=== PATIENT | male | born 1930 | race Caucasian/White ===

== ENCOUNTER → 2017-01-16 | Outpatient (CLI) | payer MEDICARE, OTHER ==
[~2017-01-16] MED LIST: AMOXICILLIN500 MG PO; ASPIRIN EC81 MG PO; CETAPHIL LOTION8 OZ TOP; CYMBALTA30 MG PO; ELIQUIS2.5 MG PO; FISH OIL 1,0001 EACH PO; FLAX OIL1000 MG PO; LASIX40 MG PO; LEVAQUIN500 MG PO; LIPITOR40 MG PO; NEXIUM40 MG PO; NITROSTAT 0.40.4 MG SL; NITROSTAT0.4 MG SL; NORCO 5-325 TA1 EACH PO; NORVASC5 MG PO; PRED FORTE 1%5 ML OPHTH; SYSTANE 0.3-0.440 ML OPHTH; TAB-A-VITE1 EACH PO; TOPROL XL25 MG PO; TRESIBA FL100 UNIT/1 SUB-Q; TYLENOL EXTRA500 MG PO; VITAMIN D-40400 UNIT PO; ZOLOFT25 MG PO
== END | disposition disaster alternative care site (69) ==
LOC: LGSMG 17:01
DX: Z00.00 Encounter for general adult medical examination without abnormal findings (principal); D64.9 Anemia, unspecified; E11.22 Type 2 diabetes mellitus with diabetic chronic kidney disease; E11.29 Type 2 diabetes mellitus with other diabetic kidney complication; E11.65 Type 2 diabetes mellitus with hyperglycemia; R60.9 Edema, unspecified; E78.5 Hyperlipidemia, unspecified; I10 Essential (primary) hypertension; E87.1 Hypo-osmolality and hyponatremia; R80.9 Proteinuria, unspecified; Z92.29 Personal history of other drug therapy; Z79.899 Other long term (current) drug therapy

== ENCOUNTER → 2017-02-27 | Outpatient (CLI) | payer MEDICARE, OTHER | LOC: LGSMG 15:29 | DX: I25.10 Atherosclerotic heart disease of native coronary artery without angina pectoris (principal); N18.4 Chronic kidney disease, stage 4 (severe); E11.22 Type 2 diabetes mellitus with diabetic chronic kidney disease; Z79.899 Other long term (current) drug therapy; R60.9 Edema, unspecified; Z00.00 Encounter for general adult medical examination without abnormal findings; I10 Essential (primary) hypertension; E87.1 Hypo-osmolality and hyponatremia; R80.9 Proteinuria, unspecified ==

== ENCOUNTER → 2017-03-08 | Day surgery (SDC) | payer MEDICARE, OTHER ==
[~2017-03-08] VITALS: Ht 170.2 cm; Wt 74.5 kg
--- NOTE | ~2017-03-08 | OR ---
PATIENT'S NAME: PELON FARRAR [facility] AGE: 86 Y [address] ROOM: [place] [address] [place] [facility] [place] DATE: 03/08/2017 OR/Procedure Report DISCHARGE DATE: FAMILY PHYSICIAN: Stan Slater MD ATTENDING PHYSICIAN: DOMI ROLLE SURGEON: Domi Rolle MD MORTGAGE LOAN ORIGINATOR: DATE OF PROCEDURE: 03/08/2017 PREOPERATIVE DIAGNOSIS: End-stage renal disease. POSTOPERATIVE DIAGNOSIS: End-stage renal disease. PROCEDURE: Left arm brachiocephalic fistula. WIRE STITCHER OPERATOR: OR staff. ANESTHESIA: General. ESTIMATED FLUID LOSS: 10 mL. OPERATIVE FINDINGS: Good thrill and bruit. Strong radial and ulnar signals at the end of the case. DESCRIPTION OF PROCEDURE: The patient was brought to the operating room, placed supine on the table, prepped and draped in a sterile manner. Preoperative time-out was performed. The patient received preoperative antibiotics. We made a standard incision 2 cm proximal to the antecubital fossa, dissected down the fascia, incised the fascia in a longitudinal manner, dissected out the brachial artery. We then dissected the cephalic vein in a similar fashion, placed a large clip and transected it. We then gave 5000 units of heparin. We then did a standard 6-0 Prolene anastomosis from the vein to the artery. We removed the clamps. There was excellent flow into the fistula. We then reversed the heparin with use of protamine. Thrombin was used locally. Wound deep layers were closed with 2-0 and 3-0 Vicryl. The skin was closed with running 4-0 Monocryl. The patient tolerated the procedure well, transferred to recovery room and then home later that day. DOMI ROLLE MD FKM/modl PATIENT'S NAME: PELON FARRAR [facility] AGE: 86 Y [address] ROOM: [place] [address] LOCATION: [facility] [place] DATE: 03/08/2017 OR/Procedure Report DISCHARGE DATE: FAMILY PHYSICIAN: Stan Slater MD ATTENDING PHYSICIAN: DOMI ROLLE /[id number] d: 03/08/17 1946 t: 03/09/17 0929, OPERATIVE SUMMARY
[2017-03-08 09:33] LABS: BASOPHIL # 0.1 K/uL (0.0-0.2); EOSINOPHIL # 0.4 K/uL (0.0-0.5); EOSINOPHIL % 4.8 %; HEMOGLOBIN 11.7 g/dL (11.0-16.0); IMMATURE GRANULOCYTE % 0.4 %; LYMPHOCYTE # 2.2 K/uL (0.8-4.0); LYMPHOCYTE % 23.5 %; MCH 33.1 pg (27.0-34.0); MCHC 33.4 gm/dL (32.0-36.5); MCV 99.2 fl (83.0-98.0); MONOCYTE # 1.3 K/uL (0.0-1.0); MONOCYTE % 13.6 %; MPV 9.4 fl (9.4-12.4); NEUTROPHIL # (ANC) 5.2 K/uL (1.4-9.0); NEUTROPHIL % 56.7 %; NRBC % 0 /100WBC (0-0.00); PLATELET COUNT 194 K/uL (150-450); RBC 3.53 M/uL (3.50-5.50); RDW-CV 12.5 % (11.9-14.6); WBC 9.2 K/uL (4.0-11.0)
[2017-03-08 09:41] LABS: INR - (THERAPEUTIC) 1.01 (0.92-1.07); PROTIME 10.6 SECONDS (9.8-11.4)
[2017-03-08 09:50] LABS: ALBUMIN 3.3 gm/dL (3.5-5.0); ANION GAP 13.6 (10.0-19.0); CALCIUM 8.6 mg/dL (8.5-10.5); CREATININE 3.9 mg/dL (0.6-1.3); POTASSIUM 4.6 mMol/L (3.7-5.1); TOTAL BILIRUBIN 0.5 mg/dL (0.0-1.5); TOTAL PROTEIN 7.9 g/dL (6.0-8.4)
== END | disposition disaster alternative care site (69) ==
LOC: GPOC 03-07 10:00 → GSDC 07:00
PROVIDERS: Surgery Vascular Surgery
PROC: 03180ZF Bypass Left Brachial Artery to Lower Arm Vein, Open Approach (ICD-10-PCS; principal; 2017-03-08)
DX: I12.0 Hypertensive chronic kidney disease with stage 5 chronic kidney disease or end stage renal disease (principal); E11.22 Type 2 diabetes mellitus with diabetic chronic kidney disease; N18.6 End stage renal disease; E78.5 Hyperlipidemia, unspecified; I25.10 Atherosclerotic heart disease of native coronary artery without angina pectoris; M48.06 Spinal stenosis, lumbar region; Z79.899 Other long term (current) drug therapy; Z98.890 Other specified postprocedural states
CPT/HCPCS: J0690; J1644; J2405; J2720; J7030

== ENCOUNTER 2017-03-23 11:36 | Inpatient (IN) | payer MEDICARE, OTHER ==
[~2017-03-23] VITALS: Ht 170.2 cm; Wt 76.8 kg
--- NOTE | ~2017-03-23 | DS ---
PATIENT'S NAME: PELON FARRAR [facility] AGE: 86 Y [address] ROOM: [address] [place] [address] LOCATION: GPCU ADMIT DATE: 03/23/2017 Discharge Summary DISCHARGE DATE: 03/28/2017 FAMILY PHYSICIAN: Stan Slater MD ATTENDING PHYSICIAN: Patricia Deluna PRINCIPAL DIAGNOSES: 1. Sepsis secondary to an infected arteriovenous fistula graft incision site. 2. Chronic kidney disease, stage 5. 3. Paroxysmal atrial fibrillation. 4. Hypertension. 5. Diabetes, type 2. HOSPITAL COURSE: Please refer to the admitting history and physical for a detailed history of initial presentation. This is an 86-year-old male with a history of CKD stage 5, on the verge for starting hemodialysis, and recent AV fistula placement by Dr. Rolle, presents with a left-sided AV fistula incision site swelling, pain, and drainage of pus-like material over the previous several days. After presentation, the patient was noted to have a sepsis picture from this and was started on broad-spectrum antibiotics to control the site. The patient was evaluated by Dr. Rolle during hospitalization as well. Fortunately, the patient's incision site improved with IV antibiotics during hospitalization. Wound cultures did grow Serratia species that was mostly pansensitive. The patient was continued to do with this regard and the plan was to go ahead and finish 5 more days course of antibiotics with Levaquin, renally adjusted going forward, and he is to follow up with Dr. Rolle in 2 weeks as well as his PCP Dr. Slater within 1 week. The patient today is in good spirits and doing well and he is to be discharged home with home health and I have discussed this with him and his family currently. PHYSICAL EXAM: GENERAL: Today, The patient is awake, alert, and oriented x3, in no acute distress. CHEST: Clear to auscultation bilaterally. HEART: S1, S2. Regular rate and rhythm. ABDOMEN: Soft, nontender, and nondistended. MUSCULOSKELETAL: Incision site on left upper extremity dressing in place and appears clean, dry, and intact. MEDICATIONS: Per JAN. DISPOSITION: Home with home health and will follow up with Dr. Slater in [address] Rolle's office in 2 weeks. PATIENT'S NAME: PELON FARRAR [facility] AGE: 86 Y [address] ROOM: [facility] [place], [place] [address] [facility] AD[facility] DATE: 03/23/2017 Discharge Summary DISCHARGE DATE: 03/28/2017 FAMILY PHYSICIAN: Stan Slater MD ATTENDING PHYSICIAN: Patricia Deluna Greater than 30 minutes were spent on discharge planning and facilitating. MD MARA MATHEW/modl /[id number] d: 03/29/17 0212 t: 04/15/17 1524, DISCHARGE SUMMARY
--- NOTE | ~2017-03-23 | HP ---
PATIENT'S NAME: PELON FARRAR [facility] AGE: 86 Y [address] ROOM: [place] [address] LOCATION: GPCU ADMIT DATE: 03/23/2017 History & Physical DISCHARGE DATE: FAMILY PHYSICIAN: Stan Slater MD ATTENDING PHYSICIAN: TEJAL PAULINO DATE OF SERVICE: CHIEF COMPLAINT: Left arm pain. Sepsis secondary to infected incision site for AV fistula two weeks ago. HISTORY OF PRESENT ILLNESS: This is an 86-year-old male with a history of stage V kidney disease, in the [place] for dialysis and subsequently had an AV fistula graft replaced, two weeks ago, comes here with increasing left forearm pain at the incision site with drainage of pus and associated fever, chills for the past few days. The patient reports that he has been feeling generally weak and not really been himself over the course of this. Also reports some subjective fever and chills during the same time as well. However, denies any problems with his appetite and he has been eating, drinking okay although at times he felt nauseous. The patient has been following up with Dr. Rolle from vascular surgeon with regard to the discomfort and pain. He has been having at the fistula graft site. The patient otherwise denies any dizziness, lightheadedness, headache, chest pain, shortness or palpitations. PAST MEDICAL HISTORY: 1. Stage V kidney disease. 2. Type 2 diabetes. 3. Hypertension. FAMILY HISTORY: History of kidney disease including a nephrectomy and his mother. SOCIAL HISTORY: The patient denies any history of alcohol, drugs or smoking history. REVIEW OF SYSTEMS: All systems were reviewed and were negative except as mentioned in the HPI. PHYSICAL EXAMINATION: VITAL SIGNS: Blood pressure 166/70, pulse 76, respiratory rate 16, temperature 97.8, and saturating 98% on room air. GENERAL: The patient is awake, alert, and oriented x3, in no acute distress. HEENT: Moist mucous membranes. No scleral icterus. Conjunctival pallor PATIENT'S NAME: PELON FARRAR [facility] AGE: 86 Y [address] ROOM: [place] [address] LOCATION: GPCU ADMIT DATE: 03/23/2017 History & Physical DISCHARGE DATE: FAMILY PHYSICIAN: Stan Slater MD ATTENDING PHYSICIAN: TEJAL PAULINO noted. SKIN: Erythema surrounding left arm at the AV fistula graft site noted with visible pus draining as well and significant swelling around the area as well. However, here get thrill at the fistula site. CHEST: Clear to auscultation bilaterally. HEART: S1, S2. Regular rate and rhythm. ABDOMEN: Soft. Nondistended. EXTREMITIES: Without edema. NEURO: Grossly nonfocal. MUSCULOSKELETAL: Pain with moving left elbow and significant swelling in the area. LABORATORY DATA: Significant lab values, white blood cell count of 18,000. ASSESSMENT AND PLAN: 1. Sepsis secondary to infected AV fistula at incision sight. Fistula was created about 2 weeks ago and he has been having increasing pain and swelling in the area including pus like drainage as well. We will treat the sepsis with Vanc and Zosyn and await for preliminary cultures to come back and at that time, we will consider narrowing antibiotics. 2. Chronic kidney disease stage 5. The patient follows closely with Dr. Slater. 3. Hypertension. We will continue his home medications as prescribed. 4. Type 2 diabetes. We will continue his home medications and use sliding scale insulin and Accu-Cheks. 5. Chronic anticoagulation with Eliquis. The patient tells me that he has had a history of stroke and that is when he was put on an Eliquis. In any case, at this point, we will hold Eliquis and the event that surgical intervention is necessary at the fistula site. 6. DVT prophylaxis. We will use SCDs. TEJAL PAULINO MD BG/modl /[id number] D: 123 T: 521 HISTORY & PHYSICAL
--- NOTE | ~2017-03-23 | CON ---
PATIENT'S NAME: PELON FARRAR [facility] AGE: 86 Y [address] ROOM: [address] [place], [place] [address] LOCATION: GPCU ADMIT DATE: 03/23/2017 Consultation DISCHARGE DATE: FAMILY PHYSICIAN: Stan Slater MD ATTENDING PHYSICIAN: TEJAL PAULINO DATE OF CONSULTATION: 03/24/2017 REFERRING PHYSICIAN: DOMI ROLLE MD [facility] Nephrology Consultation REASON FOR CONSULTATION: CKD stage 3 to 4 with left upper extremity AV fistula infection. HISTORY OF PRESENT ILLNESS: This is an 86-year-old male patient, who is well known to both Dr. Slater and Dr. Temple, who presents with a history of CKD stage 4 to 5, coronary artery disease, type 2 diabetes on insulin, and hypertension. The patient is status post left upper extremity AV fistula placement by Dr. Rolle. The patient did undergo a left arm brachiocephalic AV fistula creation on 03/08/2017. He did present to the clinic on March 14 with concerns of left arm swelling and redness postoperatively. On 03/23/2017, the patient did note increase in drainage, however, denied any fevers or chills. He denied any odor or purulence. He subsequently was admitted by the hospitalist for IV antibiotic at that time. The patient does have a past medical history of CKD stage 4 to 5 and was recently seen by Dr. Temple in the clinic in preparation for dialysis in the near future. His CKD is likely from diabetes and hypertension over the course of time. He has had a progressive rise in his creatinine since 2013. In September 2014, his creatinine was 2.43. In 2016, his creatinine has been consistently between 3.5 and 3.8. Most recently, his creatinine was up to 4.58. The patient has been doing well as an outpatient and not having any gross uremic features. Therefore, due to the patient's history of CKD stage 4 to 5, requiring antibiotic therapy due to an infected left upper extremity AV fistula, Dr. Renae has been asked to consult on the patient to manage him from Nephrology standpoint. PAST MEDICAL HISTORY: As listed above includin. Diabetes, insulin dependent. 2. Hypertension. 3. CKD stage 5. 4. Anemia of chronic kidney disease. 5. Hyperlipidemia. 6. Proteinuria. 7. Coronary artery disease. 8. Atrial fibrillation. 9. Long-term anticoagulation in the form of Eliquis. 10. Monoclonal gammopathy of undetermined significance.PATIENT'S NAME: PELON FARRAR [facility] AGE: 86 Y [address] ROOM: [id number] [place], [place] [address] [facility] AD[facility] DATE: 03/23/2017 Consultation DISCHARGE DATE: FAMILY PHYSICIAN: Stan Slater MD ATTENDING PHYSICIAN: TEJAL PAULINO ALLERGIES: NONE TO MEDICATION. CURRENT MEDICATIONS: 1. Nexium 40 mg daily. 2. Metoprolol 25 mg once a day. 3. Aspirin 81 mg daily. 4. Eliquis 2.5 mg twice a day. 5. Furosemide 40 mg daily. 6. Amlodipine 5 mg daily. 7. Atorvastatin 40 mg daily. 8. Tylenol as needed. 9. He is also taking vitamin D3. 10. Prednisone eye drops. 11. Fish oil. 12. Multivitamin. PAST SURGICAL HISTORY: Includes: 1. Coronary artery bypass grafting surgery. 2. Cholecystectomy. 3. Prostatectomy. 4. Inguinal hernia repair. FAMILY HISTORY: Significant for lymphoma in his mother. His father had a CVA. Brothers has multiple myeloma. SOCIAL HISTORY: The patient does live at home with his . He does have a history of alcohol use. He denies any illicit drug use or tobacco abuse. REVIEW OF SYSTEMS: GENERAL: Denies any fever, chills, or night sweats. EYES: No double vision or blurred vision. NOSE: No epistaxis or rhinorrhea. MOUTH: No gingival bleeding. THROAT: No sore throat, hoarseness, or cough. RESPIRATORY: Denies wheezing or hemoptysis. CARDIOVASCULAR: Denies chest pain, or palpitations. GASTROINTESTINAL: Does complain of some mild nausea. Denies any vomiting or diarrhea. Denies hematemesis or hematochezia. GENITOURINARY: Denies any frequency, urgency, or hesitancy. MUSCULOSKELETAL: Denies any new arthralgias or myalgias. NEUROLOGICAL: Denies any new balance or gait disturbances. HEMATOLOGICAL: Denies any bruising or bleeding, on Eliquis therapy. PSYCHIATRIC: Denies a history of depression or anxiety.PATIENT'S NAME: PELON FARRAR [facility] AGE: 86 Y [address] ROOM: [address] [place], [place] [address] [facility] DATE: 03/23/2017 Consultation DISCHARGE DATE: FAMILY PHYSICIAN: Stan Slater MD ATTENDING PHYSICIAN: TEJAL PAULINO PHYSICAL EXAMINATION: VITAL SIGNS: Blood pressure is 142/63, pulse 60, respirations 14, and temperature is 98.3, sats 96% on room air. GENERAL: On exam, this is an 86-year-old, white male, in no acute distress. HEENT: Head; normocephalic, atraumatic. Eyes; pupils are equal and react to light and accommodation. EOMs intact. Nose; midline. Mouth; no gingival bleeding. Throat is without lymphadenopathy or JVD. LUNGS: Lung sounds are clear to auscultation anteriorly and posteriorly. The patient is on room air. CARDIOVASCULAR: Regular rate and rhythm with no appreciable murmurs, rubs, or thrills. ABDOMEN: Soft, nontender, and nondistended. Bowel sounds positive. EXTREMITIES: Show no signs of peripheral edema, clubbing, or cyanosis. NEUROLOGIC: Cranial nerves II through XII are grossly intact. LYMPHATICS: No palpable lymph nodes in the cervical or axillary areas. LABORATORY DATA: Hemoglobin 9.1, hematocrit 27.7, WBCs 18.7, and platelets are 211. Sodium 135, potassium 4.4, chloride is 103, CO2 of 21, BUN is 48, creatinine 3.7, and glucose is 276. Blood cultures are currently pending and wound cultures are currently pending. ASSESSMENT AND PLAN: 1. Stage V chronic kidney disease status post left upper extremity AV fistula placement. The patient's baseline creatinine is 3.5. We would recommend at this time avoiding all nephrotoxic agents and avoiding IV Zosyn as well as IV vancomycin for treatment of left upper extremity AV fistula infection. The patient does not appear to be grossly uremic at this time. We will continue to monitor his creatinine as well as his urinary outputs. He will be placed on strict I's and O's as well as daily weights. 2. Hypertension. Blood pressures are stable. Continue current medications. 3. Diabetes mellitus. Sliding scale insulin. 4. Anemia of chronic kidney disease. We will continue to monitor his hemoglobin while he is hospitalized. 5. Hyperlipidemia. Continue statin therapy. This patient has been seen and assessed by Dr. Renae. His care is being conducted in consultation with Dr. Renae as well as me. We will plan further recommendations as they are forthcoming. In the interim, the patient is to avoid all nephrotoxic agents. BHAVNA NOVAK DNP, TECHNICAL SPECIALIST CYTOLOGY [facility] ZANA RENAE MD ENS/modl /[id number] d: 03/27/171 t: 04/04/17 1624, CONSULTATION REPORT
--- NOTE | ~2017-03-23 | ER ---
PATIENT'S NAME: PELON FARRAR [facility] AGE: 86 Y [address] ROOM: [place] [address] LOCATION: GPCU ADMIT DATE: 03/23/2017 ER/Outpatient Report DISCHARGE DATE: FAMILY PHYSICIAN: Stan Slater MD ATTENDING PHYSICIAN: TEJAL PAULINO CHIEF COMPLAINT: Pain, left arm and swelling. HISTORY OF PRESENT ILLNESS: The patient is an 86-year-old male, who approximately 2 weeks ago had a fistula placed in his left arm by Dr. Rolle. The patient then following the procedure had developed some swelling which Dr. Rolle had been following. However, today the arm started having some bloody drainage from the incision site. He has also noticed increased pain, swelling, and redness. The patient had a low-grade fever earlier today. PAST MEDICAL HISTORY: ALLERGIES: NO MEDICINAL ALLERGIES. CURRENT MEDICATIONS: See his copied list which was reviewed. MEDICAL HISTORY: Includes: 1. Insulin-dependent diabetes mellitus. 2. Hypertension. 3. Coronary artery disease. 4. End-stage renal failure. 5. History of GERD. 6. Prostate cancer. PAST SURGICAL HISTORY: Surgeries: 1. He has had appendicitis. 2. Triple bypass graft surgery in 2008. 3. TURP. 4. Cholecystectomy. 5. Prostatectomy. 6. Cataract extraction. 7. Dental implants. SOCIAL HISTORY: PATIENT'S NAME: PELON FARRAR [facility] AGE: 86 Y [address] ROOM: [place] [address] LOCATION: GPCU ADMIT DATE: 03/23/2017 ER/Outpatient Report DISCHARGE DATE: FAMILY PHYSICIAN: Stan Slater MD ATTENDING PHYSICIAN: TEJAL PAULINO He is . Nonsmoker. Denies alcohol use. REVIEW OF SYSTEMS: GENERAL: Fever today, generalized malaise. HEAD AND EENT: No complaints of headache, sore throat. RESPIRATORY: Denies any cough or wheezing. CARDIOVASCULAR: No recent chest pain or palpitations. GASTROINTESTINAL: Had some loose stools about a week ago, none today. No abdominal pain. GENITOURINARY: No flank pain. No dysuria. MUSCULOSKELETAL: Swelling and redness involving his left arm. Drainage from the incision where he had the fistula done. PHYSICAL EXAMINATION: VITAL SIGNS: His blood pressure is 141/66. He has a temperature of 98.6, respiratory rate of 18, pulse 57, and O2 saturations 97%. GENERAL: White male, he is cooperative, alert. HEAD AND EENT: Pupils are equal and reactive to light. He has no scleral icterus. Nose; septum in midline. Mouth; oral membranes are moist. LUNGS: Lung sound is clear. HEART: Tones distant. Regular. ABDOMEN: Soft, nontender. EXTREMITIES: Left arm; his forearm appeared swollen. SKIN: Somewhat warm and red. The incision in the antecubital fossa is closed, but there is some bloody drainage present. LABORATORY DATA: Lab Evaluation: He had lactate of 1.6. His CMS; CO2 was slightly low at 21, his glucose 276, BUN 48, and his creatinine is 3.7. Albumin low at 3.2, his globulin was high at 4.6. CBC: White count 18.7, hemoglobin was 9.1. His ANC was elevated at 14.2. Procalcitonin was 0.15. Venous Doppler study of left arm showed good arterial-venous flow with no evidence of any thrombosis. The fistula appeared to be working normal. Soft-tissue swelling was noted. ASSESSMENT: 1. Cellulitis, left arm with recent fistula placement. 2. End-stage renal failure. 3. Insulin-dependent diabetes mellitus. 4. Hypertension. 5. Coronary artery disease with history of previous triple bypass. 6. History of prostate cancer. 7. History of cerebrovascular accident. PLAN: I talked with Dr. Rolle, the vascular surgeon. His recommendation was PATIENT'S NAME: PELON FARRAR [facility] AGE: 86 Y [address] ROOM: [id number] [place] [id number] LOCATION: GPCU ADMIT DATE: 03/23/2017 ER/Outpatient Report DISCHARGE DATE: FAMILY PHYSICIAN: Stan Slater MD ATTENDING PHYSICIAN: TEJAL PAULINO patient be admitted by the Hospitalist Service for antibiotic therapy. Blood cultures were obtained here in the emergency room as well as wound cultures. Zosyn was started at 3.375 g IV. The patient was given 2 [place] for pain after the Doppler study was done. SEE RUIZ FOR MD TORIBIO THAKKAR/modl /[id number] d: 03/23/172120 t: 04/03/17 0952, OUTPATIENT REPORT
--- NOTE | ~2017-03-23 | ENPV ---
Vascular Upper Extremities Veins Procedure Demographics Patient Name PELON FARRAR Date of Study 03/23/2017 Patient Number [id number] Gender Male Date of 1930 Age 86 Visit Number [id number] Height Weight Number Room Number G6321 BSA BMI Referring Jarod Rosales PA-C Interpreting Aquilino Roberson MD Physician Physician Physician Ordering Jarod Rosales Rn Palliative Physician [employer] Solomon, RT,RVT,RDCS Conclusions Summary No evidence of thrombophlebities is noted in the deep or superficial veins of the imaged upper extremity(ies). Procedure Type of Study: Veins:Upper Extremities Veins, Upper Extremity Left. Appropriate Use Criteria:9 Patient Status:STAT. Study Location:ER. Technical Quality:Adequate visualization. - Preliminary reported to:PA. Jonatan Velocities are measured in cm/s ; Diameters are measured in cm Left UE Vein Measurements 2D and Doppler Measurements + + + + +--------+--------+ !Location !Visualized !Compressibility !Thrombosis !Signal !Reflux ! + + + + +--------+--------+ !IJV !Yes !Yes !None !Phasic !No ! + + + + +--------+--------+ !SCV !Yes !Yes !None !Phasic !No ! + + + + +--------+--------+ !Innominate !Yes !Yes !None !Phasic !No ! + + + + +--------+--------+ !Axillary !Yes !Yes !None !Phasic !No ! + + + + +--------+--------+ !Brachial !Yes !Yes !None !Phasic !No ! + + + + +--------+--------+ !Radial !Yes !Yes !None !Phasic !No ! + + + + +--------+--------+ !Ulnar !Yes !Yes !None !Phasic !No ! + + + + +--------+--------+ !Basilic !Yes !Yes !None !Phasic !No ! + + + + +--------+--------+ !Cephalic !Yes !Yes !None !Phasic !No ! + + + + +--------+--------+ Impressions Left Impression All arteries and veins of left upper extremity appear patent. The fistula appears patent but with varying velocities throughout. Signature dtt: dtd: 03/23/17 1320 Physician Self Mary Lou
[~2017-03-23 11:36] MED LIST changes: -CETAPHIL LOTION8 OZ TOP; -LEVAQUIN500 MG PO; -ZOLOFT25 MG PO
[2017-03-23 12:27] LABS: BASOPHIL # 0.1 K/uL (0.0-0.2); BASOPHIL % 0.5 %; EOSINOPHIL # 0.2 K/uL (0.0-0.5); EOSINOPHIL % 0.8 %; HEMOGLOBIN 9.1 g/dL (11.0-16.0); IMMATURE GRANULOCYTE # 0.1 K/uL (0.0-0.3); IMMATURE GRANULOCYTE % 0.7 %; LYMPHOCYTE # 1.9 K/uL (0.8-4.0); LYMPHOCYTE % 9.9 %; MCH 33.6 pg (27.0-34.0); MCHC 32.9 gm/dL (32.0-36.5); MCV 102.2 fl (83.0-98.0); MONOCYTE # 2.3 K/uL (0.0-1.0); MONOCYTE % 12.2 %; MPV 8.9 fl (9.4-12.4); NEUTROPHIL # (ANC) 14.2 K/uL (1.4-9.0); NEUTROPHIL % 75.9 %; NRBC % 0 /100WBC (0-0.00); PLATELET COUNT 211 K/uL (150-450); RBC 2.71 M/uL (3.50-5.50); RDW-CV 13.2 % (11.9-14.6)
[2017-03-23 12:40] LABS: HEMATOCRIT 27.7 % (33.0-50.0); WBC 18.7 K/uL (4.0-11.0)
[2017-03-23 12:43] LABS: ALBUMIN 3.2 gm/dL (3.5-5.0); ANION GAP 15.4 (10.0-19.0); CALCIUM 8.5 mg/dL (8.5-10.5); CREATININE 3.7 mg/dL (0.6-1.3); POTASSIUM 4.4 mMol/L (3.7-5.1); TOTAL PROTEIN 7.8 g/dL (6.0-8.4)
[2017-03-23 12:45] LABS: TOTAL BILIRUBIN 0.8 mg/dL (0.0-1.5)
[2017-03-23] MEDS ORDERED: CETAPHIL LOTION8 OZ TOP (16:17)
--- NOTE | 2017-03-23 17:22 | NUR ---
PATIENT CAME TO ER WITH CELLULITIS OF LFT ARM. HAD FISTULA PLACED 2 WKS AGO IN LFT ARM FOR POSSIBLE HD. BLOOD CULTURES DONE AND CULTURE OF WOUND DONE. HX OF STROKE NO RESIDUAL. CHRONIC BACK PAIN.
--- NOTE | 2017-03-24 04:16 | NUR ---
Significant Event: Patient is alert/oriented x3. Vital signs are stable. On room air. Khushboo, Dr. Rolle's [employer] SUPERINTENDENT, rounded on patient last evening and ordered to do betadine swabs to fistula incision site and to dress with dry gauze daily and PRN. Also to wrap lower arm all the way up to fistula incision site (but not over the site) with JAE wrap. Fistula incision cleaned with betadine and dressed with dry gauze, site did ooze slightly (serosanguinous drainage). Left lower arm JAE wrapped throughout most of the night but patient complained of discomfort and wanted to have it removed around 0200. Medicated with Tylenol x2, with relief. Left upper arm fistula has good bruit and thrill. Patient on IV vancomycin and Zosyn; Khushboo would like to have nursing staff clarify with hospitalists if patient should be receiving vancomycin due to his poor kidney function. Patient still makes urine. Follow up: Dr. Rolle still needs to see patient. Continue to monitor per plan of care.
[2017-03-24 06:31] LABS: BASOPHIL # 0.1 K/uL (0.0-0.2); BASOPHIL % 0.8 %; EOSINOPHIL # 0.7 K/uL (0.0-0.5); EOSINOPHIL % 5.2 %; HEMATOCRIT 27.9 % (33.0-50.0); HEMOGLOBIN 9.2 g/dL (11.0-16.0); IMMATURE GRANULOCYTE # 0.1 K/uL (0.0-0.3); IMMATURE GRANULOCYTE % 0.7 %; LYMPHOCYTE # 2.3 K/uL (0.8-4.0); LYMPHOCYTE % 17.4 %; MCH 33.1 pg (27.0-34.0); MCV 100.4 fl (83.0-98.0); MONOCYTE % 15.4 %; NEUTROPHIL # (ANC) 7.9 K/uL (1.4-9.0); NEUTROPHIL % 60.5 %; NRBC % 0 /100WBC (0-0.00); PLATELET COUNT 186 K/uL (150-450); RBC 2.78 M/uL (3.50-5.50); RDW-CV 13.1 % (11.9-14.6); WBC 13.1 K/uL (4.0-11.0)
[2017-03-24 06:45] LABS: ALBUMIN 2.8 gm/dL (3.5-5.0); ANION GAP 14.9 (10.0-19.0); CALCIUM 8.5 mg/dL (8.5-10.5); CREATININE 3.5 mg/dL (0.6-1.3); PHOSPHORUS 2.6 mg/dL (2.5-4.9); POTASSIUM 3.9 mMol/L (3.7-5.1)
--- NOTE | 2017-03-24 10:10 | NUR ---
PT SCREENED D/T MST. WT UP FROM FEBRUARY WT. WILL ASSIST NEEDED.
--- NOTE | 2017-03-24 14:50 | NUR ---
Significant Event: A/O. VSS on RA. C/O occasional neck pain. Up with SBA, patient states he feels unsteady at times. Abx changed today, patient remains afebrile. Fistula site continues to ooze serousanguinous fluid, changed x2 this shift. Ever wrap to lower left arm to help with edema. Family at bedside. Code status addressed today - full code. Patient upset that it was brought up so much however patient told nursing staff last night he did not want CPR so MD discussed with patient but decided today full code and does not want it brought up again. Follow up:
[2017-03-25 04:09] LABS: BASOPHIL # 0.1 K/uL (0.0-0.2); BASOPHIL % 0.6 %; EOSINOPHIL # 0.2 K/uL (0.0-0.5); EOSINOPHIL % 1.8 %; HEMATOCRIT 29.8 % (33.0-50.0); HEMOGLOBIN 9.6 g/dL (11.0-16.0); IMMATURE GRANULOCYTE # 0.1 K/uL (0.0-0.3); IMMATURE GRANULOCYTE % 0.9 %; LYMPHOCYTE # 1.5 K/uL (0.8-4.0); LYMPHOCYTE % 11.8 %; MCH 33.3 pg (27.0-34.0); MCHC 32.2 gm/dL (32.0-36.5); MCV 103.5 fl (83.0-98.0); MONOCYTE # 1.7 K/uL (0.0-1.0); MONOCYTE % 13.8 %; MPV 9.4 fl (9.4-12.4); NEUTROPHIL # (ANC) 8.9 K/uL (1.4-9.0); NEUTROPHIL % 71.1 %; NRBC % 0 /100WBC (0-0.00); PLATELET COUNT 201 K/uL (150-450); RBC 2.88 M/uL (3.50-5.50); RDW-CV 13.1 % (11.9-14.6); WBC 12.5 K/uL (4.0-11.0)
[2017-03-25 04:26] LABS: ALBUMIN 2.9 gm/dL (3.5-5.0); ANION GAP 17.6 (10.0-19.0); CALCIUM 8.6 mg/dL (8.5-10.5); CREATININE 3.3 mg/dL (0.6-1.3); POTASSIUM 3.6 mMol/L (3.7-5.1); TOTAL PROTEIN 7.3 g/dL (6.0-8.4)
--- NOTE | 2017-03-25 04:26 | NUR ---
Significant Event: Patient alert and oriented x3. Hard of hearing. SBP 131-162. All other vital signs stable. Complained of slight neck pain. Tylenol given x1 with relief. Dressing to left arm fistula changed. Continues to ooze serousanguinous fluid. JAE wrap to arm applied to decrease edema to arm/hand. Blood sugar 329 at HS. Novalog and Levamir given per orders. Patient up with stand-by assist to bathroom. Calm and cooperative with all cares. Follow up: Will continue to monitor fistula.
[2017-03-25 04:28] LABS: TOTAL BILIRUBIN 0.6 mg/dL (0.0-1.5)
--- NOTE | 2017-03-25 16:39 | NUR ---
Significant Event: Alert and oriented X 3. Room air. SBP 144. 131, and 174. HR 60's and 70's. Afebrile. Fistula to left upper arm, bruit heard and thrill felt. Dressing changed to incision on arm. Ever wrap to lower left arm from elbow to hand. ACHS accuchecks 109, 194, with no correction needed. Up with 1 assist and gait belt. Pleasant and cooperative with cares. Follow up:
--- NOTE | 2017-03-26 04:34 | NUR ---
Significant Event: Patient alert and oriented x3. Hard of hearing. Hearing aids at bedside. SBP 131-156. All other vital signs stable. On RA. Tylenol given x1 for anticipation of pain. Dressing to left arm fistula changed x1. Continues to ooze serousanguious fluid. JAE wrap to left arm and hand remains on. Patient up in room with stand-by assist. Calm and cooperative with all cares. Follow up: Will continue to monitor left fistula.
[2017-03-26 04:44] LABS: BASOPHIL # 0.1 K/uL (0.0-0.2); EOSINOPHIL # 1.3 K/uL (0.0-0.5); EOSINOPHIL % 15.1 %; HEMOGLOBIN 9.2 g/dL (11.0-16.0); IMMATURE GRANULOCYTE # 0.1 K/uL (0.0-0.3); IMMATURE GRANULOCYTE % 0.7 %; LYMPHOCYTE # 1.4 K/uL (0.8-4.0); LYMPHOCYTE % 16.2 %; MCH 33.3 pg (27.0-34.0); MCHC 32.9 gm/dL (32.0-36.5); MCV 101.4 fl (83.0-98.0); MONOCYTE # 1.3 K/uL (0.0-1.0); MONOCYTE % 14.4 %; MPV 9.3 fl (9.4-12.4); NEUTROPHIL # (ANC) 4.7 K/uL (1.4-9.0); NEUTROPHIL % 52.6 %; NRBC % 0 /100WBC (0-0.00); PLATELET COUNT 202 K/uL (150-450); RBC 2.76 M/uL (3.50-5.50); WBC 8.8 K/uL (4.0-11.0)
[2017-03-26 04:59] LABS: ALBUMIN 2.5 gm/dL (3.5-5.0); ANION GAP 13.1 (10.0-19.0); CALCIUM 8.5 mg/dL (8.5-10.5); CREATININE 3.4 mg/dL (0.6-1.3); PHOSPHORUS 2.8 mg/dL (2.5-4.9); POTASSIUM 4.1 mMol/L (3.7-5.1)
--- NOTE | 2017-03-26 12:15 | NUR ---
Introduced self and care management services to patient and at bedside. Too soon to know what antibx needs will be on discharge but pt and hoping he can go home on discharge. Denies needs right now. Will follow.
--- NOTE | 2017-03-26 16:21 | NUR ---
Significant Event: Afebrile. HE 60-70's. SBP 130-140's. ON RA. Up ad tomi in room today. Ambulates hallway with PT. Tylenolx2 for generalized discomfort. Blood sugars 118 & 208. Decreased oozing noted from left arm fistula site. Continue IV antibiotics. Follow up: Monitor dressing to left arm.
[2017-03-27 03:44] LABS: BASOPHIL # 0.1 K/uL (0.0-0.2); BASOPHIL % 1.2 %; EOSINOPHIL # 1.7 K/uL (0.0-0.5); EOSINOPHIL % 19.8 %; HEMATOCRIT 28.1 % (33.0-50.0); HEMOGLOBIN 9.1 g/dL (11.0-16.0); IMMATURE GRANULOCYTE # 0.1 K/uL (0.0-0.3); IMMATURE GRANULOCYTE % 1.2 %; LYMPHOCYTE # 1.8 K/uL (0.8-4.0); LYMPHOCYTE % 20.4 %; MCH 33.2 pg (27.0-34.0); MCHC 32.4 gm/dL (32.0-36.5); MCV 102.6 fl (83.0-98.0); MONOCYTE # 1.3 K/uL (0.0-1.0); MONOCYTE % 15.1 %; MPV 9.4 fl (9.4-12.4); NEUTROPHIL # (ANC) 3.7 K/uL (1.4-9.0); NEUTROPHIL % 42.3 %; NRBC % 0 /100WBC (0-0.00); PLATELET COUNT 211 K/uL (150-450); RBC 2.74 M/uL (3.50-5.50); WBC 8.6 K/uL (4.0-11.0)
[2017-03-27 03:54] LABS: ALBUMIN 2.6 gm/dL (3.5-5.0); ANION GAP 12.9 (10.0-19.0); CALCIUM 8.8 mg/dL (8.5-10.5); CREATININE 3.5 mg/dL (0.6-1.3); PHOSPHORUS 3.2 mg/dL (2.5-4.9); POTASSIUM 3.9 mMol/L (3.7-5.1)
--- NOTE | 2017-03-27 04:38 | NUR ---
Significant Event: A/O, VSS on RA, SBA to bathroom, Tylenol given x2 for neck/head pain, dressing to L)arm fistula C.D.I, upon awaking patient for 0300 assessment he was very agitated, Patient given Tylenol for headache and continued to yell at RN, Rn Family Practice then talked with patient, but patient continues to be unhappy with his care and being woken up in the middle of the night. Wishes to speak with supervisor [employer] dietary service today Follow up: continue plan of care
--- NOTE | 2017-03-27 16:21 | NUR ---
Reviewed pt chart, talked with patient nurse, family talked with Dr Renae this morning about pt going to [facility] on discharge. Then family gone for lunch and gone to eye appointment for his most of the rest of the day, did get to talk with patient, and daughter at bedside just now. Asked them what their plan is on discharge. Pt and and daughter say Dr Rolle came in and said he can go home tomorrow. Asked if they are comfortable going home and they all said they thought so. Asked them if they were wanting pt to go to [facility], was that discussed this morning, and they report Dr Renae said something about he would check into it. I let them know that meant he would contact a personal care home administrator to look into it. Let them know I am happy to start a referral to [facility] if they want, but looking at his therapy notes, he is meeting his therapy goals here and surpassing Medicare guidelines that allow [facility], so don't think he will qualify or they will accept. They are okay with that information, okay with plan to go home. Did offer Home Health and explained a nurse could come out and assess incision and meds and physically assess patient so we made sure he did okay when he went home, asked if they have to stay home if they have HH. Explained yes pt has to be homebound but asked if they thought he would be out and about frequently anyway the first few weeks. They weren't sure, have a lunch on Saturday for a friend they would like to go to. Said they would think about HH and let us know, told them I would put the paperwork on the chart for HH and personal care home administrator would stop and ask if they wanted it, if so we will set it up and if not we won't. They are okay with this plan. Called Dr Renae and discussed with him. He is fine with plan. Let Desiree DUMONT pt nurse know. Will follow.
--- NOTE | 2017-03-27 16:22 | NUR ---
Significant Event: A/O. VSS on RA. C/O VILLALTA, tylenol given with some relief. UP with SBA doing well. Voiding adequate amounts, urinal provided but patient forgets to use. 1 loose stool reported, need cdiff. Dressing to fistula changed x1 - when old dressing was removed it began to ooze a lot but eventually stopped. Follow up: plan to dismiss tomorrow.
--- NOTE | 2017-03-28 04:27 | NUR ---
Significant Event: VSS, PT AFEBRILE. CONTIUES ON RA WITH SATS FROM 94-97%. UP WITH ONE ASSIST TO BATHROOM. USES CALL LIGHT APPROPRIATELY. GAVE TYLENOL X1 FOR HEADACHE. ON 12/13 BAG ON NS. A&OX3. RESTED WELL THROUGH THE NIGHT. PT VOICED NO QUESTIONS OR CONCERNS. Follow up:
[2017-03-28 06:41] LABS: BASOPHIL # 0.1 K/uL (0.0-0.2); BASOPHIL % 0.9 %; EOSINOPHIL # 1.7 K/uL (0.0-0.5); HEMATOCRIT 28.9 % (33.0-50.0); HEMOGLOBIN 9.5 g/dL (11.0-16.0); IMMATURE GRANULOCYTE # 0.1 K/uL (0.0-0.3); LYMPHOCYTE # 2.1 K/uL (0.8-4.0); LYMPHOCYTE % 23.7 %; MCH 33.5 pg (27.0-34.0); MCHC 32.9 gm/dL (32.0-36.5); MCV 101.8 fl (83.0-98.0); MONOCYTE # 1.6 K/uL (0.0-1.0); MONOCYTE % 17.5 %; MPV 9.2 fl (9.4-12.4); NEUTROPHIL # (ANC) 3.4 K/uL (1.4-9.0); NEUTROPHIL % 37.9 %; NRBC % 0 /100WBC (0-0.00); PLATELET COUNT 216 K/uL (150-450); RBC 2.84 M/uL (3.50-5.50); RDW-CV 12.9 % (11.9-14.6)
[2017-03-28 06:49] LABS: ALBUMIN 2.5 gm/dL (3.5-5.0); CALCIUM 8.6 mg/dL (8.5-10.5); CREATININE 3.2 mg/dL (0.6-1.3)
--- NOTE | 2017-03-28 11:49 | NUR ---
I spoke with pt and son and plan is to go home today and yes wants [facility]. I gave options and chose [facility]. I called Michelle and faxed her the information and will send dc orders once they are done. Will assist as needed.
[2017-03-28] MEDS ORDERED: LEVAQUIN500 MG PO (12:38)
[2017-03-28] MEDS ORDERED: ZOLOFT25 MG PO (12:40)
== END 2017-03-28 14:15 | disposition home health service (06) | DRG 314 ==
LOC: GMED 11:36 → GPCU 14:41
PROVIDERS: Family Medicine; Physician Assistant Medical; ADMIT Internal Medicine
DX: T82.7XXA Infection and inflammatory reaction due to other cardiac and vascular devices, implants and grafts, initial encounter (principal); A41.9 Sepsis, unspecified organism; N18.5 Chronic kidney disease, stage 5; I48.0 Paroxysmal atrial fibrillation; L03.114 Cellulitis of left upper limb; E11.9 Type 2 diabetes mellitus without complications; I25.10 Atherosclerotic heart disease of native coronary artery without angina pectoris; Z66 Do not resuscitate; Z79.01 Long term (current) use of anticoagulants; D63.1 Anemia in chronic kidney disease; Z79.4 Long term (current) use of insulin
CPT/HCPCS: J0878; J1644; J2185; J2543; J3370; J7030; J7040; J7050

== ENCOUNTER → 2017-05-06 | Outpatient (CLI) | payer MEDICARE, OTHER ==
[~2017-05-06] MED LIST changes: +CETAPHIL LOTION8 OZ TOP; +LEVAQUIN500 MG PO; +ZOLOFT25 MG PO
== END ==
LOC: LGSMG 11:19
DX: Z00.00 Encounter for general adult medical examination without abnormal findings (principal); D64.9 Anemia, unspecified; N18.4 Chronic kidney disease, stage 4 (severe); E11.22 Type 2 diabetes mellitus with diabetic chronic kidney disease; Z79.899 Other long term (current) drug therapy; R60.9 Edema, unspecified; E87.1 Hypo-osmolality and hyponatremia; I12.9 Hypertensive chronic kidney disease with stage 1 through stage 4 chronic kidney disease, or unspecified chronic kidney disease

== ENCOUNTER → 2017-06-12 | Outpatient (CLI) | payer MEDICARE, OTHER | END | disposition disaster alternative care site (69) | LOC: LGSMG 11:40 | DX: C61 Malignant neoplasm of prostate (principal) ==

== ENCOUNTER → 2017-07-22 | Outpatient (CLI) | payer MEDICARE, OTHER | LOC: LGSMG 15:27 | DX: Z00.00 Encounter for general adult medical examination without abnormal findings (principal); I12.9 Hypertensive chronic kidney disease with stage 1 through stage 4 chronic kidney disease, or unspecified chronic kidney disease; M10.9 Gout, unspecified; D64.9 Anemia, unspecified; N18.4 Chronic kidney disease, stage 4 (severe); Z79.899 Other long term (current) drug therapy; R60.9 Edema, unspecified; E78.5 Hyperlipidemia, unspecified; E87.1 Hypo-osmolality and hyponatremia; E11.29 Type 2 diabetes mellitus with other diabetic kidney complication ==